=== PATIENT | female | born 1985 | race African-American/Black ===

== ENCOUNTER 2020-02-22 13:10 | Emergency (ER) | payer MEDICAID ==
--- NOTE | 2020-02-22 13:32 | ER Document Report ---
ED Medical Screen (RME) - General Chief Complaint: Abdominal Pain Stated Complaint: ABDOMINAL PAIN Time Seen by Provider: 02/22/20 13:25 Mode of Arrival: Ambulatory Information source: Patient Notes: 34-year-old female presents to ED for complaint of bad abdominal pain all over worse on the lower abdomen. She states it also hurts when she empties her urine. She states she has a history of asthma bronchitis diabetes type 2 high blood pressure fibromyalgia bipolar depression. She states she has had a hysterectomy and does not get menstrual cycles anymore. She is a former smoker drinks maybe 1 every 3 to 4 months no illicit drugs. We will get blood urine and acute abdomen series. I have greeted and performed a rapid initial assessment of this patient. A comprehensive ED assessment and evaluation of the patient, analysis of test results and completion of medical decision making process will be conducted by an additional ED providers. Physical Exam - Vital signs Vitals: Temp Pulse Resp BP Pulse Ox 98.0 F 80 18 154/113 H 98 02/22/20 13:16 02/22/20 13:16 02/22/20 13:16 02/22/20 13:16 02/22/20 13:16 Course - Vital Signs Vital signs: Temp Pulse Resp BP Pulse Ox 98.0 F 80 18 154/113 H 98 02/22/20 13:16 02/22/20 13:16 02/22/20 13:16 02/22/20 13:16 02/22/20 13:16
[2020-02-22 14:10] LABS: ABSOLUTE LYMPHOCYTES (AUTO) 1.4 10^3/uL (0.5-4.7); ABSOLUTE MONOCYTES (AUTO) 0.4 10^3/uL (0.1-1.4); ABSOLUTE NEUT (AUTO) 5.4 10^3/uL (1.7-8.2); BASOPHILS % (AUTO) 0.6 % (0-2); EOSINOPHILS % (AUTO) 0.6 % (0-6); HEMATOCRIT 43.2 % (36.0-47.0); HEMOGLOBIN 14.4 g/dL (12.0-15.5); LYMPHOCYTES % (AUTO) 19.1 % (13-45); MEAN CORPUSCULAR HEMOGLOBIN 26.8 pg (27.0-33.4); MEAN CORPUSCULAR HGB CONC 33.5 g/dL (32.0-36.0); MEAN CORPUSCULAR VOLUME 80 fl (80-97); MONOCYTES % (AUTO) 5.6 % (3-13); PLATELET COUNT 312 10^3/uL (150-450); RED BLOOD COUNT 5.38 10^6/uL (3.72-5.28); RED CELL DISTRIBUTION WIDTH 12.9 % (11.5-14.0); SEGMENTED NEUTROPHILS % (AUTO) 74.1 % (42-78); TOTAL CELLS COUNTED % (AUTO) 100 %; WHITE BLOOD COUNT 7.3 10^3/uL (4.0-10.5)
[2020-02-22 14:19] LABS: ALBUMIN 4.2 g/dL (3.5-5.0); ALKALINE PHOSPHATASE 173 U/L (38-126); ANION GAP 11 (5-19); ASPARTATE AMINO TRANSFERASE 18 U/L (14-36); BILIRUBIN,DIRECT 0.3 mg/dL (0.0-0.4); BILIRUBIN,TOTAL 0.4 mg/dL (0.2-1.3); BLOOD UREA NITROGEN 10 mg/dL (7-20); CALCIUM 9.8 mg/dL (8.4-10.2); CARBON DIOXIDE 25 mmol/L (22-30); CHLORIDE 98 mmol/L (98-107); POTASSIUM 4.5 mmol/L (3.6-5.0); TOTAL PROTEIN 7.7 g/dL (6.3-8.2)
[2020-02-22 14:27] LABS: APPEARANCE,URINE SLIGHTLY-CLOUDY; BILIRUBIN,URINE NEGATIVE (NEGATIVE); COLOR,URINE YELLOW; GLUCOSE 435 mg/dL (75-110); GLUCOSE, URINE >=500 mg/dL (NEGATIVE); KETONES,URINE NEGATIVE (NEGATIVE); LEUKOCYTE ESTERASE,URINE SMALL (NEGATIVE); NITRITE,URINE NEGATIVE (NEGATIVE); PROTEIN,URINE NEGATIVE (NEGATIVE); URINE SPECIFIC GRAVITY 1.027; UROBILINOGEN,URINE NEGATIVE mg/dL (<2.0)
--- NOTE | 2020-02-22 14:43 | RADIOLOGY REPORT (SQ) ---
EXAM DESCRIPTION: ACUTE ABDOMEN SERIES IMAGES COMPLETED DATE/TIME: 02/22/2020 2:14 pm REASON FOR STUDY: Abdominal pain has previous hysterectomy COMPARISON: None. NUMBER OF VIEWS: Three views. TECHNIQUE: Frontal chest, supine abdomen and upright/decubitus abdomen radiographic images acquired. LIMITATIONS: None. FINDINGS: CHEST: Lungs clear of infiltrates. FREE AIR: None. No abnormal gas collections. BOWEL GAS PATTERN: A paucity of bowel gas limits evaluation. There is bowel gas distally over the re ctum. No dilated loops or air fluid levels. CALCIFICATIONS: No suspicious calcifications. HARDWARE: None in the abdomen. SOFT TISSUES: No gross mass or suggestion of organomegaly. BONES: No acute fracture. No worrisome bone lesions. OTHER: No other significant finding. IMPRESSION: No acute pulmonary process. Paucity of bowel gas, though no dilated loops of small bowel or other findings to suggest bowel obstr uction. There is gas projecting distally over the rectum. TECHNICAL DOCUMENTATION: JOB ID: [id number] 2010 [employer]- All Rights Reserved Reading location - IP/workstation name: [email or web address]
[2020-02-22] MEDS ORDERED: DICYCLOMINE HCL INJ 20 MG/2 ML AMPULE IM ONE (16:43)
--- NOTE | 2020-02-22 16:43 | ER Document Report ---
ED General - General Chief Complaint: Abdominal Pain Stated Complaint: ABDOMINAL PAIN Time Seen by Provider: 02/22/20 13:25 Mode of Arrival: Ambulatory Notes: Patient is a 34-year-old -[place] female coming in today with mid lower abdominal pelvic pain that has been going on for several months. Patient report s that she has seen her primary care doctor recently. She was sent here to have UTI and kidney stone ruled out. 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 She does not report any vaginal discharge, but has not had a pelvic exam. She reports a post void pelvic pain. No fevers or shaking chills. No nausea vomiting or diarrhea - Related Data Allergies/Adverse Reactions: No Known Allergies Allergy (Verified 02/22/20 13:30) Home Medications: Amlodipine, Duloxetine, Flonase, Levemir, Lisinopril, Albut sushma inhaler Past Medical History - General Information source: Patient - Social History Smoking Status: Former Smoker Frequency of alcohol use: Rare Drug Abuse: None Family History: Reviewed & Not Pertinent Review of Systems - Review of Systems Notes: Constitutional: No fevers. No chills. EENT: No eye redness. No eye pain. No ear pain. No sore throat. Cardiovascular: No chest pain. No palpitations. Respiratory: No cough. No shortness of breath. No respiratory distress. Gastrointestinal: +abdominal pain. No nausea, vomiting, or diarrhea. Genitourinary: Atraumatic. No lesions. No pain. No discharge. Musculoskeletal: Atraumatic. No swelling. No deformities. Skin: No rash or lesions. Lymphatic: No swollen lymph nodes. Neurologic: No headache. No syncope. Psychiatric: No suicidal or homicidal ideation. Physical Exam - Vital signs Vitals: Temp Pulse Resp BP Pulse Ox 98.0 F 80 18 154/113 H 98 02/22/20 13:16 02/22/20 13:16 02/22/20 13:16 02/22/20 13:16 02/22/20 13:16 - Notes Notes: General: Well-developed, well-nourished. In no acute distress. Non-toxic appearing. Cardiac: Well-perfused. Regular rate and rhythm. No murmurs, rubs, or gallops. Pulmonary: No respiratory distress. No cyanosis. Bilateral lung lemus are clear to auscultation. Abdominal: Non-distended. Non-rigid. Bowels sounds are present in all four quadrants. No guarding or rebound. Tenderness over the suprapubic region. No guarding or rebound. Normal bowel sounds all 4 quadrants. No peritoneal signs. No CVA tenderness HEENT: Head is atraumatic. Conjunctivae not reddened. No tearing. PERRL. EOMI. Orbits atraumatic. No periorbital swelling or erythema. Oropharynx is without erythema, swelling, or exudates. Neck: Supple. No adenopathy. No meningismus. Dermatologic: Warm with good turgor. No rash. Atraumatic. Chest: Atraumatic. No chest wall tenderness to palpation. Musculoskeletal: Moves all extremities well. No range of motion deficits. no muscular or joint tenderness. No paraspinal muscle tenderness. no midline spinal tenderness or step-off. Genitourinary: Chaperoned by Elina RODRIGUEZ. External genitalia normal. Speculum exam reveals thick yellow cervical discharge and cervical erythema. Atraumatic. Bimanual exam reveals no adnexal masses or tenderness. Positive cervical motion tenderness. Neurologic: No gross neurologic deficits. Psychiatric: Normal mood. Course - Re-evaluation Re-evalutation: 02/22/20 16:41 Patient has a full lab battery done in the triage area. These all look reassuring with the exception of her glucose which is 436. No anion gap. No nausea or vomiting. She reports pain which is severe post void. Denies vaginal discharge. Does not sound like she has had a pelvic exam thus far. Suggested we go ahead and check them for evidence of PID. Suspect this will be normal but will check and send cultures. She apparently had an ultrasound not long ago which was normal. I don't think she would benefit from a CT scan at this point. 02/22/20 19:21 Patient's labs reassuring except for elevated blood sugar. She is receiving IV fluids for this. Exam suspicious for cervicitis/PID. Will give the typical cocktail for that here. Home on doxycycline. 02/22/20 20:43 Blood glucose now at 304. Will discharge - Vital Signs Vital signs: Temp Pulse Resp BP Pulse Ox 98.6 F 71 16 156/107 H 100 02/22/20 15:19 02/22/20 15:19 02/22/20 15:19 02/22/20 15:19 02/22/20 15:19 - Laboratory Result Diagrams: 02/22/20 13:36 02/22/20 13:36 Laboratory results interpreted by me: 02/22/20 02/22/20 02/22/20 13:36 13:36 13:36 RBC 5.38 H MCH 26.8 L Sodium 133.9 L Creatinine 0.47 L Glucose 435 H* POC Glucose Alkaline Phosphatase 173 H Urine Glucose (UA) >=500 H Ur Leukocyte Esterase SMALL H Urine Ascorbic Acid 20 H 02/22/20 20:32 RBC MCH Sodium Creatinine Glucose POC Glucose 304 H Alkaline Phosphatase Urine Glucose (UA) Ur Leukocyte Esterase Urine Ascorbic Acid Discharge - Discharge Clinical Impression: Chronic abdominal pain, Cervicitis, Hyperglycemia, Elevated blood pressure reading Condition: Good Disposition: HOME, SELF-CARE Instructions: Abdominal Pain ([facility]), Cervicitis ([facility]), Hyperglycemia ([facility]), High Blood Pressure ([facility]) Prescriptions: Doxycycline Hyclate 100 mg PO BID #20 tablet.dr Forms: Return to Work Referrals: MILLICENT PABLO MD [ACTIVE STAFF] - Follow up as needed
[2020-02-22] MEDS ORDERED: NORMAL SALINE 1000 ML 1,000 ML IV ONE (16:49)
[2020-02-22] MEDS ORDERED: AZITHROMYCIN 250 MG TABLET PO ONE (19:18)
[2020-02-22] MEDS ORDERED: METRONIDAZOLE 500 MG TABLET PO ONE (19:18)
[2020-02-22] MEDS ORDERED: CEFTRIAXONE INJ 250 MG VIAL IM ONE (19:20)
[2020-02-22] MEDS ORDERED: LIDOCAINE 1% INJ-PF (10 MG/ML) 30 ML SDV INFIL ONE (19:20)
[2020-02-22 21:33] LABS: T.VAGINALIS (WET MOUNT) TRICHOMONAS SEEN; WBCS (WET MOUNT) FEW WBCS SEEN; YEAST (WET MOUNT) NO YEAST SEEN
[2020-02-22 21:34] LABS: BACTERIA (WET MOUNT) 3+ BACTERIA SEEN; EPITHELIALS (WET MOUNT) 3+ EPITHELIALS SEEN; RBCS (WET MOUNT) 1+ RBCS SEEN
[2020-02-22 21:53] VITALS: BP 157/110
[2020-02-22 22:59] LABS: CHLAM PCR NOT DETECTED (NOT DETECT)
== END 2020-02-22 21:53 | disposition home or self-care (01) ==
LOC: ER 13:10
DX: G89.29 Other chronic pain (principal); R10.30 Lower abdominal pain, unspecified; R10.2 Pelvic and perineal pain; N72 Inflammatory disease of cervix uteri; R03.0 Elevated blood-pressure reading, without diagnosis of hypertension; E11.65 Type 2 diabetes mellitus with hyperglycemia
CPT/HCPCS: 99284; 96372; 96360; 96361; 36415; 87086; 87210; 82962; 85025; 80053; 81001; 87491; 87591; 74022; J0500; J3490; J7030; J0696